=== PATIENT | male | born 1955 | race Caucasian/White ===

== ENCOUNTER → 2019-12-13 14:46 | Outpatient (CLI) | payer BC, SELFPAY ==
--- NOTE | ~2019-12-13 | XR_ITS ---
XR chest 2V 12/13/2019 15:01 Indication: Bronchitis Procedure: 2 view chest Comparison: 02/01/2018 Findings: Cardiomegaly. No focal air space disease, pulmonary edema, pleural effusion or suspected pn eumothorax. Status post median sternotomy for CABG. Impression: 1: No acute cardiopulmonary disease. Reviewed, dictated and finalized at location B. [employer]ING PROGRAM MANAGER Impression: 1: No acute cardiopulmonary disease.
== END ==
PROVIDERS: PCP Family Medicine; Visit Provider Family Medicine
DX: J40 Bronchitis, not specified as acute or chronic (principal)
CPT/HCPCS: 71046